=== PATIENT | female | born 1935 | race Caucasian/White ===

== ENCOUNTER 2017-11-25 09:57 | Inpatient (IN) | payer OTHER ==
[~2017-11-25 09:57] MED LIST: ROPIVACAINE 0.2% 80 MG, EPINEPHrine 0.2 MG, KETOROLAC TROMETHAMINE 30 MG in SYRINGE 0 ML IU ONE; TRANEXAMIC ACID 3,000 MG in NS 50 ML IRR ONE; TRANEXAMIC ACID 3,000 MG/50 ML BAG IRR ONE
[2017-11-25] MEDS ORDERED: FAMOTIDINE 20 MG TAB PO ONE (10:07)
[2017-11-25] MEDS ORDERED: ceFAZolin 2 GM/SWFI 2 GM/20 ML SYR IVP ONE (10:07)
[2017-11-25] MEDS ORDERED: DEXAMETHASONE 4 MG/ML VIAL IVP ONE (10:07)
[2017-11-25] MEDS ORDERED: ACETAMINOPHEN 325 MG TAB PO ONE (10:07)
[2017-11-25] MEDS ORDERED: LR 1,000 ML IV ONE (10:14)
[2017-11-25] MEDS ORDERED: LIDOCAINE 1% 2 ML INJ ID PRN (10:14)
[2017-11-25] MEDS ORDERED: ACETAMINOPHEN 325 MG TAB ONE (10:57)
--- NOTE | 2017-11-25 11:06 | PDHPUP ---
History & Physical Update H&P update statement: This history and physical update is based on an assessment of the patient which was completed after admission or registration (within 24 hours), but prior to the surgery/procedure. H&P update: H&P reviewed & patient examined, no change in patient's condition since H&P completed
--- NOTE | 2017-11-25 11:21 | PDANEPAE ---
ANE History of Present Illness 82 yo for asuncion ANE Past Medical History - Cardiovascular History Hx Hypertension: No Hx Arrhythmias: Yes Hx Chest Pain: No Hx Coronary Artery / Peripheral Vascular Disease: No Hx CHF / Valvular Disease: No Hx Palpitations: No Cardiovascular History Comment: after surgery in may- pt's bp dropped and she had a short run of afib- was told she didn't need to follow up there was no need for concern. hyperlipidemia - Pulmonary History Hx COPD: No Hx Asthma/Reactive Airway Disease: No Hx Recent Upper Respiratory Infection: No Hx Oxygen in Use at Home: No Hx Sleep Apnea: No Sleep Apnea Screening Result - Last Documented: Negative - Neurologic History Hx Cerebrovascular Accident: No Hx Seizures: No Hx Dementia: No - Endocrine History Hx Diabetes: No Endocrine History Comment: goiter that she has scans every 2 yrs- dr faby lopez. hypothyroidism - Renal History Hx Renal Disorders: No - Liver History Hx Hepatic Disorders: No - Neurological & Psychiatric Hx Hx Neurological and Psychiatric Disorders: No - Cancer History Hx Cancer: Yes Cancer History Comment: breast ca. skin ca - Congenital Disorder History Hx Congenital Disorders: No - GI History Hx Gastrointestinal Disorders: Yes Gastrointestinal History Comment: reflux. had very bad heartburn with celebrex after surgery in may - Other Health History Other Health History: wears glasses. old wart on bottom of right foot x 2 years - Chronic Pain History Chronic Pain: Yes (right hip) - Surgical History Prior Surgeries: 05/2017 right ASUNCION with Ga at [facility]. tubal ligation. breast lumpectomy 2003 ANE Review of Systems Review of Systems: - Exercise capacity METS (RN): 4 METS ANE Patient History - Allergies Allergies/Adverse Reactions: No Known Allergies Allergy (Verified 11/25/17 10:20) - Home Medications Home medications: home medication list seen and reviewed Home Medications: Aspirin [Aspirin 81mg (*)] 81 mg PO HS 10/16/17 [Last Taken 11/11/17] Atorvastatin Calcium [Lipitor 10 mg (*)] 10 mg PO HS 10/16/17 [Last Taken ] Calcium Carbonate [Oyster Shell Calcium 500 mg (*)] 1,000 mg PO DAILY 10/16/17 [ Last Taken 11/11/17] Famotidine [Pepcid 20 MG (*)] 20 mg PO BID PRN 10/16/17 [Last Taken 11/23/17] Folic Acid [Folic Acid 1 MG (*)] 1 mg PO DAILY 10/16/17 [Last Taken 11/18/17] Herbals/Supplements -Info Only 1 ea PO DAILY 10/16/17 [Last Taken 11/11/17] Levothyroxine [Synthroid 50 mcg (*)] 50 mcg PO DAILY06 10/16/17 [Last Taken 09/02 03:00] Loratadine [Claritin] 10 mg PO DAILY PRN 10/16/17 [Last Taken 11/24/17 19:00] Methotrexate Sodium [Rheumatrex 2.5 mg (RX)] 20 mg PO TH 10/16/17 [Last Taken ] Multivitamins [Multivitamin (*)] 1 each PO DAILY 10/16/17 [Last Taken 11/11/17] Naproxen Sodium [Aleve 220 MG (*)] 220 mg PO BID 10/16/17 [Last Taken 10/28/17] guaiFENesin [Mucinex 600 MG (*)] 600 mg PO DAILY PRN 10/16/17 [Last Taken 18:00] - NPO status NPO Status: no food or drink >8 hours NPO Since - Liquids (Date): 11/25/17 NPO Since - Liquids (Time): 07:00 NPO Since - Solids (Date): 11/24/17 NPO Since - Solids (Time): 19:00 - Smoking Hx Smoking Status: Never smoked - Family Anes Hx Family Hx Anesthesia Complications: none ANE Labs/Vital Signs - Vital Signs Blood Pressure: 146/69 Heart Rate: 76 Respiratory Rate: 16 O2 Sat (%): 97 Height: 5 ft 5 in Weight: 68.039 kg ANE Physical Exam - Airway Neck exam: FROM Mallampati Score: Class 2 Mouth exam: normal dental/mouth exam - Pulmonary Pulmonary: no respiratory distress - Cardiovascular Cardiovascular: regular rate and rhythym - ASA Status ASA Status: II ANE Anesthesia Plan Anesthesia Plan: spinal
[2017-11-25] MEDS ORDERED: MIDAZOLAM 2 MG/2 ML VIAL IVP ONE (11:22)
[2017-11-25] MEDS ORDERED: PROPOFOL/EMULSION 500 MG/50 ML BOTTLE IV ONE (11:36)
[2017-11-25] MEDS ORDERED: NALOXONE HCL 0.4 MG/ML INJ IVP PRN (13:09)
[2017-11-25] MEDS ORDERED: ONDANSETRON 4 MG/2 ML VIAL IVP PRN ×2 (13:09→13:37)
[2017-11-25] MEDS ORDERED: fentaNYL 100 MCG/2 ML INJ IVP PRN (13:09)
[2017-11-25] MEDS ORDERED: HYDROmorphONE/DILAUDID 1 MG/ML INJ IVP PRN (13:09)
[2017-11-25] MEDS ORDERED: FAMOTIDINE 20 MG TAB PO PRN (13:36)
[2017-11-25] MEDS ORDERED: diphenhydrAMINE 25 MG CAP PO PRN (13:37)
[2017-11-25] MEDS ORDERED: PROMETHAZINE HCL 25 MG/ML INJ IVP PRN (13:37)
[2017-11-25] MEDS ORDERED: POLYETHYLENE GLYCOL 3350 17 GM PKT PO PRN (13:37)
[2017-11-25] MEDS ORDERED: ONDANSETRON DISINTEGRATING 4 MG TAB PO PRN (13:37)
[2017-11-25] MEDS ORDERED: DIPHENOXYLATE/ATROPINE LOMOTIL 1 TAB PO PRN (13:37)
[2017-11-25] MEDS ORDERED: METOCLOPRAMIDE 10 MG/2 ML VIAL IVP PRN (13:37)
[2017-11-25] MEDS ORDERED: BISACODYL 10 MG SUPP PR PRN (13:37)
[2017-11-25] MEDS ORDERED: MAGNESIUM HYDROXIDE 30 ML UDCUP PO PRN (13:37)
[2017-11-25] MEDS ORDERED: PROMETHAZINE HCL 25 MG SUPPR PR PRN (13:37)
[2017-11-25] MEDS ORDERED: TEMAZEPAM 15 MG CAP PO PRN (13:37)
[2017-11-25] MEDS ORDERED: LACTULOSE 20 GM/30 ML UDCUP PO PRN (13:37)
--- NOTE | 2017-11-25 13:40 | POSTOPPROG ---
Post Op Note Date of Operation: 11/25/17 Surgeon: Chris Burnette Brim Flexer: jagdeep burnette Anesthesiologist: dr. mcleod Anesthesia: Spinal Pre-op Diagnosis: right hip OA Post-op Diagnosis: same Indication: right hip pain due to OA that failed conservative measures Procedure: R ASUNCION ant approach Findings: severe hip OA Inf/Abcess present in the surg proc area at time of surgery?: No EBL: 100-500
[2017-11-25] MEDS ORDERED: LR 1,000 ML IV SCH (14:00)
--- NOTE | 2017-11-25 14:34 | POSTANESTH ---
Post Anesthetic Evaluation Cardiovascular Status: Normal, Stable Respiratory Status: Normal, Stable Level of Consciousness/Mental Status: Mildly Sleepy, Arousable Pain Control: Adequate, Prn Tx Ordered Nausea/Vomiting Control: Adequate, Prn Tx Ordered Complications Possibly Related to Anesthesia: None Noted
[2017-11-25] MEDS ORDERED: fentaNYL 100 MCG/2 ML INJ ONE (15:45)
[2017-11-25] MEDS ORDERED: oxyCODONE IR 5 MG TAB ONE (15:46)
[2017-11-25] MEDS: oxyCODONE IR 5 MG TAB PO PRN ×2 (15:50→20:41)
[2017-11-25] MEDS ORDERED: HYDROmorphONE/DILAUDID 1 MG/ML INJ ONE (15:53)
[2017-11-25] MEDS: ACETAMINOPHEN 325 MG TAB PO SCH (17:57)
[2017-11-25] MEDS: ceFAZolin 2 GM/DEXTROSE 100 ML IV SCH (17:58)
[2017-11-25] MEDS: CYCLOBENZAPRINE 10 MG TAB PO PRN (17:58)
[2017-11-25] MEDS: ASPIRIN 81 MG CHEWABLE TAB PO SCH (20:40)
[2017-11-25] MEDS: FAMOTIDINE 20 MG TAB PO SCH (20:40)
[2017-11-25] MEDS: SENNOSIDES/DOCUSATE SODIUM TAB PO SCH (20:40)
[2017-11-25] MEDS ORDERED: ATORVASTATIN CALCIUM 10 MG TAB PO SCH (21:00)
[2017-11-26] MEDS: oxyCODONE IR 5 MG TAB PO PRN ×3 (00:22→10:13)
[2017-11-26] MEDS: ACETAMINOPHEN 325 MG TAB PO SCH ×2 (00:23→05:40)
[2017-11-26] MEDS: ceFAZolin 2 GM/DEXTROSE 100 ML IV SCH (01:54)
[2017-11-26] MEDS ORDERED: LEVOTHYROXINE 50 MCG TAB PO SCH (06:00)
[2017-11-26 07:07] VITALS: BP 109/56; PULSE 67; RESP 14; TEMP 98.2; O2SAT 95
[2017-11-26] MEDS: ASPIRIN 81 MG CHEWABLE TAB PO SCH (08:07)
[2017-11-26] MEDS: CYCLOBENZAPRINE 10 MG TAB PO PRN (08:07)
[2017-11-26] MEDS: FAMOTIDINE 20 MG TAB PO SCH (08:07)
[2017-11-26] MEDS: SENNOSIDES/DOCUSATE SODIUM TAB PO SCH (08:07)
--- NOTE | 2017-11-26 08:32 | GOP ---
[f rep st] OPERATIVE REPORT DATE OF OPERATION: 11/25/2017 SURGEON: Tabby Koroma MD CONSTRUCTION LABORER: DEBORA Mosquera ANESTHESIA: Spinal. PREOPERATIVE DIAGNOSIS: Right hip osteoarthritis. POSTOPERATIVE DIAGNOSIS: Right hip osteoarthritis. PROCEDURE PERFORMED: Right total hip arthroplasty with x-ray. FINDINGS: ESTIMATED BLOOD LOSS: 200 cc. INDICATIONS: The patient has progressively worsening arthritis of the hip which has failed medical management. The patient understands the treatment options including continued non-operative care and has selected surgical intervention. The patient has decided to undergo total hip arthroplasty via the direct anterior approach, understanding the risks of the procedure including , but not limited to, neurovascular injury, infection, persistent pain, component wear and loosening, deep venous thrombosis, pulmonary embolism, limb length inequality, hip instability (including dislocation), and intra-operative fractures. DESCRIPTION OF PROCEDURE: After proper identification of the patient including verification and marking the surgical site, the patient was brought to the operating room and placed in the supine position. All bony prominences were well padded. Anesthesia was induced without complication and intravenous prophylactic antibiotics were administered prior to skin incision. The operative leg was placed in the Trumpf Arch table extension and the well leg in a Yellofin leg irwin. The patient was prepped and draped in the usual sterile fashion. The C-arm was draped for intra-operative fluoroscopy to check acetabular position, femoral component position including leg length and femoral offset. Attention was then drawn to surgical exposure of the hip. An incision was made with a #10 Bard Eduardo blade starting 3 cm lateral and 3 cm distal to the anterior superior iliac spine measuring 8-10 cm and coursing distally toward the greater trochanter. The skin and subcutaneous tissues were divided sharply down to the fascia india. The fascia india was incised in line with the skin incision exposing the underlying tensor fascia india muscle. The muscle was bluntly elevated from the fascia and the first extracapsular Cobra retractor was placed laterally at the junction of the superior femoral neck and greater trochanter. The lateral femoral circumflex vessels were identified, cauterized , and divided with the Aquamantys bipolar cautery. The deep investing fascia of the TFL was divided to allow proper mobilization of the muscle preventing damage during the retraction. The reflected head of the rectus femoris muscle was elevated off the anterior hip capsule and a medial Cobra retractor was placed just proximal to the lesser trochanter. The anterior capsulotomy was made sharply from the superolateral acetabulum to the saddle junction of the superior femoral neck and greater trochanter, then coursing inferomedial towards the lesser trochanter. The retractors were then placed in the intracapsular position for femoral neck osteotomy. Corresponding to pre-operative templating, the osteotomy was made with the oscillating saw carefully protecting the greater trochanter and soft tissues. The femoral head was removed from the acetabulum with a corkscrew and confirmed to be severely arthritic with exposed bone, deformity and osteophytes. Similar findings were confirmed in the acetabulum. The Arch table extension was then placed in 40 degrees external rotation. Attention was then drawn to the acetabular preparation. After placement of the anterior and posterior Cobra retractors outside the labrum and intracapsular, the circumferential labrum was removed sharply. The foveal contents were then removed and hemostasis obtained with cautery. The first reamer selected was sized using the removed femoral head. Reaming began with medialization and then commenced in 2 mm increments at 45 degrees of abduction and 15 degrees of anteversion using fluoroscopic navigation. Reaming ceased 1 mm less than the definitive acetabular component and corresponded to the pre-operative templating. The final acetabular component was inserted using fluoroscopy to achieve proper orientation yielding excellent purchase and stability in the acetabulum. The final acetabular liner was then placed and its seating confirmed. Attention was then turned to the femur. The Arch table extension was placed in extension and adduction, delivering the osteotomized femoral neck into the wound. A 2-pronged femoral elevator was placed at the calcar and another at the tip of the greater trochanter. The posterolateral capsule was released with cautery allowing mobilization of the femur lateral and anterior for preparation. The external rotators were visualized and preserved. A curette and rongeur were used to open the starting point for broaching. Serial broaching started with the #0 broach and ended with the broach that exhibited excellent fit in the proximal femur. A change in pitch during mallet strikes was accompanied by the inability to advance the broach any further. The trial reduction was performed and fluoroscopic navigation was utilized to check limb length. Adjustments were made to equalize limb length accordingly. After the final trials were accepted they were removed and the wound was copiously lavaged. The femoral component was seated to the same depth as the final broach and the femoral head was impacted onto the clean trunnion. The hip was then reduced for the final time and once more fluoroscopy was used to check that limb length equality was achieved. The wound was irrigated and closed in layers, the fascia india with 2-0 Quill, the subcutaneous tissue with 2-0 Quill, and the skin with Dermabond. Sterile dressings were applied. Final sharps and sponge counts were accurate. The patient was then transferred to a hospital bed and brought to the recovery room in stable condition. IMPLANTS: Accolade II size 3 at 127. The acetabular component is a 50 mm Tritanium. The liner is a Trident X3, 32 mm. The head is a Biolox Delta 32 mm +0. /[id number]/MODL MTDD
--- NOTE | 2017-11-26 08:47 | SOAPPROG ---
SOAP Progress Note Assessment/Plan: Assessment: Patient is doing well POD 1 s/p R ASUNCION Pain management: pain is well controlled on oral pain meds. VTE ppx: recommend aspirin 81mg BID for 4 weeks, cont ANGELITA and SCDs Anemia: level is expected initially postop. Asymptomatic. Continue to monitor D/c planning: d/c to home today pending release from PT Plan: 11/26/17 08:46 Subjective: Nelida is doing well today, denies SOB, chest pain and N/V. Objective: Vital Signs Temp Pulse Resp BP Pulse Ox 36.8 C 67 14 109/56 L 95 11/26/17 07:05 11/26/17 07:05 11/26/17 07:05 11/26/17 07:05 11/26/17 07:05 Laboratory Results 11/26/17 05:50 11/26/17 05:50 11/25/17 11/26/17 11/27/17 05:59 05:59 05:59 Intake Total 2280 100 Output Total 900 Balance 1380 100 RLE: incision dressing is clean and dry, NVI, +pf/df ICD10 Worksheet Patient Problems: Problems Problem Status Onset Primary localized osteoarthritis of right hip Acute
--- NOTE | 2017-11-26 09:48 | GDS ---
[f rep st] DISCHARGE SUMMARY ADMISSION DIAGNOSIS: Right hip osteoarthritis. DISCHARGE DIAGNOSIS: Right hip osteoarthritis. PROCEDURE: Right total hip arthroplasty. VTE PROPHYLAXIS: Aspirin 81 mg twice daily recommended for a month. BRIEF DESCRIPTION OF HOSPITAL STAY: Patient was admitted for an elective joint arthroplasty. The pa aroldo tolerated the procedure well and has passed physical therapy. The patient was given appropriat e antibiotic prophylaxis and venous thromboembolism prophylaxis. The patient's pain was well control led on oral pain medication, patient was holding down food, and had urinated. Decision was made to d ischarge the patient. The patient was given post-operative prescriptions pre-operatively. PLAN: Please follow up as scheduled in Dr. Koroma's office on December 17 at 1:15. /[id number]/MODL
--- NOTE | 2017-11-26 11:25 | PDIAF ---
- Diagnosis Diagnosis: s/p ASUNCION Code Status: Full Code - Medication Management Discharge Medications: Medications to Continue on Transfer Atorvastatin Calcium [Lipitor 10 mg (*)] 10 mg PO HS 10/16/17 [Last Taken ] Calcium Carbonate [Oyster Shell Calcium 500 mg (*)] 1,000 mg PO DAILY 10/16/17 [ Last Taken 11/11/17] Famotidine [Pepcid 20 MG (*)] 20 mg PO BID PRN 10/16/17 [Last Taken 11/23/17] Folic Acid [Folic Acid 1 MG (*)] 1 mg PO DAILY 10/16/17 [Last Taken 11/18/17] Herbals/Supplements -Info Only 1 ea PO DAILY 10/16/17 [Last Taken 11/11/17] Levothyroxine [Synthroid 50 mcg (*)] 50 mcg PO DAILY06 10/16/17 [Last Taken 09/02 03:00] Loratadine [Claritin] 10 mg PO DAILY PRN 10/16/17 [Last Taken 11/24/17 19:00] Methotrexate Sodium [Rheumatrex] 20 mg PO TH 10/16/17 [Last Taken 11/20/17] Multivitamins [Multivitamin (*)] 1 each PO DAILY 10/16/17 [Last Taken 11/11/17] guaiFENesin [Mucinex 600 MG (*)] 600 mg PO DAILY PRN 10/16/17 [Last Taken 18:00] Acetaminophen [Tylenol 325mg (*)] 650 mg PO Q6HRS tab 11/26/17 [Last Taken Unknown] Aspirin [Aspirin 81mg (*)] 81 mg PO BID #0 11/26/17 [Last Taken 11/11/17] Cyclobenzaprine [Flexeril 10 MG (*)] 10 mg PO Q8HRS PRN tab 11/26/17 [Last Taken Unknown] Sennosides/Docusate Sodium [Senokot-S] 1 - 2 tab PO BID tab 11/26/17 [Last Taken Unknown] oxyCODONE IR [Oxycodone Ir (*)] 5 - 10 mg PO Q3HRS PRN tab 11/26/17 [Last Taken Unknown] Discharge Medications: Refer to the Discharge Home Medication list for PRN reason. - Orders Services needed: Home Care, Physical Therapy Home Care Face to Face: I certify that this patient was under my care and that I had the required [id number] encounter meeting the encounter requirements on the discharge day. My findings support the fact that the patient is homebound as defined in Home Care Face to Face Continued: CMS Chapter 7 Medicare Benefits Manual 30.1.1 , The condition of the patient is such that there exists a normal inability to leave home and consequently, leaving home would require a considerable and taxing effort. Diet Recommendation: no restrictions on diet Diet Texture: Regular Texture Diet Wound Care Instructions: see instructions Activity/Weight Bearing Restrictions: WBAT with FWW Additional: NO ACTIVE HIP FLEXION FOR 6 WEEKS POSTOP. Joint Protocol-Hip Replacement. Follow up with Dr. Shi office as scheduled. After surgery instructions: Take Aspirin 81mg by mouth morning and evening for 4 weeks (helps to prevent blood clots). Wear thigh high ANGELITA hose on both legs during the daytime for 2 weeks (helps to prevent blood clots and decrease swelling in the surgical leg). It is ok to remove ANGELITA hose at night time to give your legs a break. It is common for swelling and bruising to occur in the entire surgical leg even extending to the foot, if concerned call Dr. Sepulveda office [phone]. Weight bearing as tolerated. Use a walker for 7-14 days. Do exercises in the book 2-3 times a day. Ice at least 3-5 times a day for 30 minutes each time, if not more often. If you have further questions that are not addressed here, please look at the information packet handed to you at the preop appointment. Most will be answered on the FAQs, after surgery instructions and incision care pages. You may also call Dr. Shi office with questions as well. *IF YOU HAVE A LIFE THREATENING EMERGENCY, CALL 911. FOR NON-LIFE THREATENING ISSUES, PLEASE CALL DR. SHI OFFICE FIRST. A PHYSICIAN IS SOCIAL SCIENCE RESEARCH ASSISTANT 08/06. Incision/Dressing Care: May shower tomorrow, Incision dressing is waterproof. Do not soak in water, but shower is ok. Keep the incision (rai) dressing clean and dry. If the incision dressing gets soiled or wet underneath, change dressing to the dressing given to you by the hospital. (rai dressing will turn black if drainage occurs). Remove incision dressing (rai one) two weeks after surgery. Leave steri strips alone. They will fall off on their own. Do not have anyone else remove the incision dressing prior to the stated recommendation (2 weeks after surgery). If there are incision concerns, contact Dr. Sepulveda office. (Silvana or Dr. Koroma may remove earlier if concerns arise). If incision site (rai dressing) has drainage, call Dr. Sepulveda office, . Silvana and Dr. Koroma may ask you to come into the office for further evaluation - Follow Up Care Current Providers and Referrals: YOAV GALE [Other] Silvana Koroma PA [Physician Wind Energy Project Manager] - 12/17/17 1:15 pm
--- NOTE | 2017-11-26 11:29 | PDFACE2FAC ---
Face to Face Encounter 1. I certify that this patient is under my care and that I, or a nurse practitioner or physician's certified physician's assistant working with me, had a [id number] encounter that meets the physician [id number]-[id number] encounter requirements with this patient on 11/26/17. 2. I certify that based on my findings, the following services are medically necessary home health services: [X Nursing] [X Physical Therapy] [ Speech-Language Pathology] 3. The medical condition and clinical findings that support the need for specialized skills, knowledge and judgement of the above services are: [s/p ASUNCION with FWW] 4. I certify this patient is homebound* because [the patient's condition restricts their ability to leave their home except with the assistance of another individual or the aid of a supportive device.] s/p ASUNCION I certify that this patient is confined to his/her home and needs intermittent long-term care, physical and/or speech therapy. This patient is under my care and I have authorized home health services. * Homebound is defined by Medicare as follows: absences from home require considerable and tacking effort and or for medical reasons or congregation services or are infrequent or of short duration when for other reasons*.
--- NOTE | 2017-11-26 11:51 | ASDISCHSUM ---
Discharge Information Plan Status:Home with Home Health Medically Cleared to Leave:11/25/2017 Discharge Date:11/26/2017 11:07 AM CM D/C Disposition:Home Health Service [facility] D/C Disposition:Home, Routine, Self-Care Projected Discharge Date:11/26/2017 11:00 AM Transportation at D/C:Family Discharge Delay Reason: Follow-Up Date:11/26/2017 11:00 AM Discharge Slot: Final Diagnosis: Placement Information Referral Type:*Home Health Care Services Referral ID:[id number] Provider Name:[facility] ([facility]) Address 1:[address] [address] Address 2: City:[place] Selection Factors: State:[place] Patient Contact Information Contact Name:JAMA Relationship: Address:[address] [place] [address] Work Phone: [facility]:VEGA BAJA Alternate Phone: [facility]/Zip Code:[place] [address] Email: Financial Information Financial Class:Medicare Advantage Plans Primary Plan Desc:[facility] ADVANTAGE PLANS Primary Plan Number:[id number] Secondary Plan Desc: Secondary Plan Number: Assessment Information CM Oil Transport Driver Assessment [employer] Did you go to joint Answers: No (why?) Notes: Pt watched the online class? video CM Note CM Note Notes: Nelida is planning to discharge home with the support of her daughter. She has scheduled outpatient physical therapy, obtained a walker, and seen the online joint video. Nelida had her other hip done last year, so she is well informed. Date Signed: 11/19/2017 02:17 PM Electronically Signed By:Mariia Cam LACE LACE Length of stay for Answers: Less than 1 day current admission Acuity / Level of Care Answers: No. Emergency dept visits in Answers: 0 last 6 months Date Signed: 11/26/2017 10:17 AM Electronically Signed By:Sue Brizuela RN Case Management Discharge Plan Note Case Management Discharge Discharge Order Complete? Answers: Yes Patient to Obtain Answers: via Family Medications Transportation Arranged Answers: Family/Friends Faxed Final Orders Answers: Yes Agency/Facility Transfer Answers: Yes Report Printed & Faxed to Receiving Agency Discharge Comments Notes: 11/26/2017 Case Management Note Met w/pt who is requesting home PT services. This is second hip replacement for pt. Based on previous recovery, pt felt she would need approximately 3 weeks of home PT before starting outpatient rehab process. Daughter Brinda Devine [phone] and her are visiting until next Thursday. Daughter Inés Pedro [phone] from [place] is coming into town on Thursday for a week. Pt is hoping to be cleared for driving at the 3 week des. Pt declined home RN services for wound care. Case Management sent fax to [facility] who accepted pt. Daughter to transport home. Date Signed: 11/26/2017 11:06 AM Electronically Signed By:Sue Brizuela RN Intervention Information
== END 2017-11-26 11:07 | disposition home or self-care (01) | DRG 470 ==
LOC: F3E 09:57 → F3N 15:47
PROVIDERS: ADMIT Orthopaedic Surgery; ATTEND Orthopaedic Surgery
PROC: 0SR904Z Replacement of Right Hip Joint with Ceramic on Polyethylene Synthetic Substitute, Open Approach (ICD-10-PCS; principal; 2017-11-25 12:15)
DX: M16.11 Unilateral primary osteoarthritis, right hip (principal); E78.5 Hyperlipidemia, unspecified; E03.9 Hypothyroidism, unspecified; Z85.3 Personal history of malignant neoplasm of breast; Z85.820 Personal history of malignant melanoma of skin; K21.9 Gastro-esophageal reflux disease without esophagitis
CPT/HCPCS: 97161-GP; 97165-GO; 97535-GO; G8978-GP-CI; G8979-GP-CI; G8980-GP-CI; G8987-GO-CI; G8988-GO-CI; G8989-GO-CI; J0171; J0690; J1100; J1170; J1885; J2250; J2704; J2795; J3010